=== PATIENT | female | born 1995 | race Caucasian/White ===

== ENCOUNTER 2024-08-14 05:58 | Inpatient (IN) | payer OTHER ==
[2024-08-14] VITALS (13 sets, daily range): BP systolic 116–132; BP diastolic 59–88
[~2024-08-14] VITALS: Ht 152.4 cm; Wt 87.5 kg
[2024-08-14] MEDS ORDERED: RINGERS SOLUTION,LACTATED 1,000 ML IV SCH (06:15)
[2024-08-14] MEDS ORDERED: PRENATAL CAPLE1 EAC1 PO (06:30)
[2024-08-14 06:49] LABS: PH,URINE 5.5 (5.0-8.0); URINE APPEARANCE Clear; URINE BILIRRUBIN Negative (NEGATIVE); URINE BLOOD Negative; URINE COLOR Yellow; URINE GLUCOSE Negative (NEGATIVE); URINE KETONE Negative (NEGATIVE); URINE LEUKOCYTE Small; URINE NITRATE Negative; URINE PROTEIN Negative (NEGATIVE); URINE UROBILINOGEN 0.2 E.U./dl
[2024-08-14 06:50] LABS: URINE BACTERIA 3529.8 uL (0.0-1933); URINE EPITHELIAL CELLS 67.9 uL (0.0-38.8); URINE RBC 2.9 uL (0.0-20.8); URINE WBC 120.3 uL (0.0-23.2)
[2024-08-14 06:57] LABS: HEMATOCRIT 37.1 % (36.0-45.00); HEMOGLOBIN 12.5 g/dL (12.0-15.00); MEAN CORPUSCULAR HEMOGLOBIN 26.9 pg (27.00-32.0); MEAN CORPUSCULAR HGB CONC 33.6 g/dl (32.0-36.0); PLATELET COUNT 223 K/uL (150-450); RED BLOOD COUNT 4.64 M/uL (4.00-6.00); RED CELL DISTRIBUTION WIDTH 15.3 % (11.5-14.5)
[2024-08-14 07:23] LABS: INR < 0.93; PARTIAL THROMBOPLASTIN TIME 26.3 SECONDS (22.0-34.0)
[2024-08-14 07:30] LABS: ALBUMIN 2.7 gm/dL (3.4-5.0); BILIRUBIN TOTAL 0.27 mg/dL (0.3-1.2); CALCIUM 9.3 mg/dL (8.5-10.1); CREATININE SERUM 0.54 mg/dL (0.55-1.02); GFR 136.47; GLOBULINA 3.7 G/DL (2.4-3.5); POTASSIUM 4.29 mEq/L (3.5-5.1); TOTAL PROTEIN 6.4 gm/dL (6.4-8.2)
[2024-08-14 07:37] LABS: URINE CAST 1.03 uL (0.0-1.40)
[2024-08-14] MEDS ORDERED: OXYTOCIN 500 ML IV SCH (08:30)
[2024-08-14] MEDS ORDERED: CHLORHEXIDINE GLUCONATE 120 ML BOTTLE TOP ONE ×2 (16:57→21:30)
[2024-08-14] MEDS ORDERED: LIDOCAINE HCL 1% 10ML VIAL ONE (16:57)
[2024-08-14] MEDS ORDERED: OXYTOCIN 20 UNITS/1000ML RL PIGGYBAG IV ONE (16:57)
[2024-08-14] MEDS ORDERED: ERYTHROMYCIN BASE OPHT 1GM EACH TUBE OP ONE ×2 (16:57→21:30)
[2024-08-14] MEDS ORDERED: IBUprofen 600 MG TABLET PO SCH (21:15)
[2024-08-14] MEDS ORDERED: LIDOCAINE HCL 1% 10ML VIAL IJ ONE (21:30)
[2024-08-14] MEDS ORDERED: OXYTOCIN 1,000 ML IV SCH (21:45)
[2024-08-15 00:27] VITALS: BP 112/65
[2024-08-15] MEDS ORDERED: IBUprofen 600 MG TABLET PO SCH (08:00)
[2024-08-15 08:42] VITALS: BP 99/59; O2SAT 98
[2024-08-15] MEDS ORDERED: HYDROCORTISONE 2.5% 30 GM TUBE RECTAL SCH (09:00)
[2024-08-15 13:41] VITALS: BP 100/60
[2024-08-15 16:00] VITALS: BP 104/67
[2024-08-16 00:23] VITALS: BP 100/60
[2024-08-16 08:28] VITALS: BP 115/71; O2SAT 99
[2024-08-16] MEDS ORDERED: MEASLES,MUMPS,RUBELLA VACC/PF 1 VIAL VIAL SUBCUTANEO NR ×2 (12:45→19:00)
[2024-08-16 13:13] VITALS: BP 110/77; O2SAT 98
[2024-08-16 16:00] VITALS: BP 117/80
== END 2024-08-16 19:06 | disposition home or self-care (01) | DRG 807 ==
LOC: LDR 05:58 → OB/GYN 05:58 → LDR 07:41 → OB/GYN 21:23
PROVIDERS: ADMIT Specialist; ATTEND Specialist
PROC: 10E0XZZ Delivery of Products of Conception, External Approach (ICD-10-PCS; principal; 2024-08-14)
PROC: 0KQM0ZZ Repair Perineum Muscle, Open Approach (ICD-10-PCS; 2024-08-14)
PROC: 4A1HXCZ Monitoring of Products of Conception, Cardiac Rate, External Approach (ICD-10-PCS; 2024-08-14)
DX: O70.1 Second degree perineal laceration during delivery (principal); Z37.0 Single live birth; O69.81X0 Labor and delivery complicated by cord around neck, without compression, not applicable or unspecified; Z3A.39 39 weeks gestation of pregnancy